=== PATIENT | male | born 1980 | race American Indian/Alaskan Native ===

== ENCOUNTER 2016-03-14 22:44 | Emergency (ER) | payer SELFPAY ==
[2016-03-15 00:19] LABS: RED CELL DISTRIBUTION WIDTH 13.3 % (11.5-14.5); WHITE BLOOD COUNT 8.7 K/mm3 (4.0-10.0)
[2016-03-15 00:34] LABS: AMPHETAMINES LEVEL URINE NEGATIVE (NEGATIVE); BENZODIAZEPINES URINE NEGATIVE (NEGATIVE); COCAINE METABOLITE URINE NEGATIVE (NEGATIVE); CONTROL LINE INT CTR LINE PRESENT; METHADONE URINE NEGATIVE (NEGATIVE); OPIATES URINE NEGATIVE (NEGATIVE); TRICYCLIC ANTIDEPRESS URINE NEGATIVE (NEGATIVE)
[2016-03-15 00:51] LABS: ALBUMIN 4.5 GM/DL (3.2-5.2); ALBUMIN/GLOBULIN RATIO 1.22 (1.00-1.93); ALKALINE PHOSPHATASE 60 U/L (45-117); ALT/SGPT 39 U/L (12-78); ANION GAP 12 MEQ/L (8-16); AST/SGOT 35 U/L (15-37); BILIRUBIN,DIRECT 0.2 MG/DL (0.0-0.2); BILIRUBIN,TOTAL 0.6 MG/DL (0.2-1.0); BLOOD UREA NITROGEN 9 MG/DL (7-18); CALCIUM LEVEL 8.7 MG/DL (8.5-10.1); CARBON DIOXIDE LEVEL 23 MEQ/L (21-32); CHLORIDE LEVEL 107 MEQ/L (98-107); CREATININE FOR GFR 1.02 MG/DL (0.70-1.30); GLOMERULAR FILTRATION RATE > 60.0 (>60); GLUCOSE, FASTING 90 MG/DL (70-105); SODIUM LEVEL 142 MEQ/L (136-145); TOTAL PROTEIN 8.2 GM/DL (6.4-8.2)
--- NOTE | 2016-03-15 01:17 | EDDOCDS ---
Physician Documentation [facility] Name: Hany Cobian Age: 35 yrs Sex: Male : 1980 Arrival Date: 03/14/2016 Time: 22:44 Bed OBSERVATION Private MD: Disposition: 03/15/16 01:10 Discharged to Home/Self Care. Impression: Cannabis abuse with intoxication, Alcohol abuse, Other disorders of adult personality and behavior. - Condition is Stable. - Medication Reconciliation, Local Pharmacy Hours form. - Follow up: Referral list, As provided by PFS; When: Call to arrange an appointment; Reason: Recheck today's complaints. - Problem is chronic. - Symptoms are unchanged. Historical: - Allergies: no known allergies; - Home Meds: 1. fluoxetine 40 mg Oral cap 1 cap once daily had not taken for a year 2. olanzapine 20 mg oral tab 1 tab once daily had not taken for a year 3. hydroxyzine HCl 25 mg Oral tab 1 tab had not taken for a year - PMHx: ADHD; - PSHx: none; - Social history: Smoking status: Patient uses tobacco products, light tobacco smoker. No barriers to communication noted, The patient speaks fluent Bhutanese. - Family history: Not pertinent. - : The pt / caregiver states he / she is not on anticoagulants. Home medication list is obtained from the patient. - Exposure Risk Screening:: None identified. Vital Signs: 03/14 22:59 BP 143 / 88; Pulse 70; Resp 20; Temp 98.4; Pulse Ox 97% on R/A; Weight 88.45 kg / 195 slm lbs; Height 6 ft. 1 in. (185.42 cm); Pain 6/10; 03/15 01:11 BP 121 / 83; Pulse 65; Resp 18; Temp 97.9; Pulse Ox 98% ; Pain 0/10; mas 03/14 22:59 Body Mass Index 25.73 (88.45 kg, 185.42 cm) slm MDM: 03/14 23:56 Consult PFS/PSA/Mailhouse Operator ordered. cs11 23:56 Consult PFS/PSA/Mailhouse Operator: Patient's case requires discussion with on-call cs11 Psychiatrist ordered. 23:56 PSA/PFS to call Nursing Card Services Specialist, to enter [place] data [place] if patient cs11 involuntarily admitted or transferred for SI or HI ordered. 23:56 Confirm accurate psychiatric medication list and times of last dosage ordered. cs11 23:56 Detain Pt Until Medically/PFS Cleared ordered. cs11 23:57 Acetaminophen Level Ordered. EDMS 23:57 Basic Metabolic Profile Ordered. EDMS 23:57 Complete Blood Count Ordered. EDMS 23:57 Drug Eval Toxicology ED Only Ordered. EDMS 23:57 Ethyl Alcohol (ethanol) Ordered. EDMS 23:57 Liver Profile Ordered. EDMS 23:57 Salicylate Level Ordered. EDMS 23:57 Thyroid Stimulating Hormone Ordered. EDMS 0115 00:39 Drug Eval Toxicology ED Only Reviewed. cs11 00:39 Complete Blood Count Reviewed. cs11 00:40 Financial registration complete. hs2 01:06 Acetaminophen Level Reviewed. cs11 01:06 Ethyl Alcohol (ethanol) Reviewed. cs11 01:06 Salicylate Level Reviewed. cs11 01:06 Basic Metabolic Profile Reviewed. cs11 01:06 Liver Profile Reviewed. cs11 01:06 Thyroid Stimulating Hormone Reviewed. cs11 01:14 Consult PFS/PSA/Mailhouse Operator complete. hm1 01:14 Consult PFS/PSA/Mailhouse Operator: Patient's case requires discussion with on-call [facility] Psychiatrist complete. 01:14 PSA/PFS to call Nursing Card Services Specialist, to enter [place] data [place] if patient 1 involuntarily admitted or transferred for SI or HI complete. 01:15 MHE Legal paperwork was scanned into [employer]. and attached to record. [facility] Signatures: Dispatcher [employer] EDMS Belinda Potter RN RN rs3 Elzbieta Avery, PSA PSA [facility] Quintin Noland, DO cs11 Joslyn Gregg LPN LPN slMaria De Jesus Yang, Reg Reg hs2 MTDD
--- NOTE | 2016-03-15 01:17 | EDDOCDS ---
Nurse's Notes [facility] Name: Hany Cobian Age: 35 yrs Sex: Male : 1980 Arrival Date: 03/14/2016 Time: 22:44 Bed OBSERVATION Private MD: Diagnosis: Cannabis abuse with intoxication;Alcohol abuse;Other disorders of adult personality and behavior Presentation: 03/14 22:49 Presenting complaint: Police states that patient called 911, was talking " I want to rs3 kill this town". Mental Health Triage Level: Level 2: The patient was brought to the ED for evaluation because of a legal pickup order. Adult Sepsis Screening: Adult Sepsis Screening: Patient's respiratory rate is less than 22. Systolic blood pressure is greater than 100. Patient has a qSOFA score of 0- Negative Sepsis Screen. Suicide/Homicide risk assessment- Patient denies SI and HI but presents with another emotional, behavioral or other mental health complaint. The patient reports that he/she has not been admitted to an inpatient mental health facility in the last 30 days. The patient reports that he/she does not have a recent or current history of substance abuse. The patient reports that he/she has no prior history of suicide attempt and/or organized plan. The patient reports that he/she has not experienced a significant life altering event in the last 30 days. The patient reports that he/she has adequate social support. Status: Patient is not a intermodal customer service or dependent. Transition of care: patient was not received from another setting of care. 22:49 Acuity: JACKELYN Level 3 rs3 22:49 Method Of Arrival: Police Car rs3 Triage Assessment: 22:54 General: Appears in no apparent distress. Pain: Denies pain. Pt Declines HIV testing. rs3 Historical: - Allergies: no known allergies; - Home Meds: 1. fluoxetine 40 mg Oral cap 1 cap once daily had not taken for a year 2. olanzapine 20 mg oral tab 1 tab once daily had not taken for a year 3. hydroxyzine HCl 25 mg Oral tab 1 tab had not taken for a year - PMHx: ADHD; - PSHx: none; - Social history: Smoking status: Patient uses tobacco products, light tobacco smoker. No barriers to communication noted, The patient speaks fluent French. - Family history: Not pertinent. - : The pt / caregiver states he / she is not on anticoagulants. Home medication list is obtained from the patient. - Exposure Risk Screening:: None identified. Screenin:54 Screening information is obtained from the patient. Fall risk: No risks identified. rs3 Assistance ADL's: requires no assistance with activities of daily living. Abuse/DV Screen: The patient / caregiver reports he/she is: not in a situation that causes fear, pain or injury. Nutritional screening: No deficits noted. Advance Directives: Currently, there is no health care proxy. home support is adequate. Assessment: 22:54 General: Appears in no apparent distress, Behavior is cooperative. Pain: Denies pain. rs3 Neurological: Level of Consciousness is awake, alert. Cardiovascular: Capillary refill < 3 seconds. Respiratory: Airway is patent Respiratory effort is even, unlabored. Derm: Skin is pink, warm & dry. 23:25 General: Appears in no apparent distress, Behavior is cooperative. General: security slm observing . Respiratory: Airway is patent Respiratory effort is even, unlabored. Derm: Skin is pink, warm & dry. 03/15 00:07 General: Appears in no apparent distress, comfortable, Behavior is appropriate for age, slm cooperative, pleasant. General: security observing . Respiratory: Airway is patent Respiratory effort is even, unlabored. Derm: Skin is pink, warm & dry. 01:15 General: Appears in no apparent distress, comfortable, Behavior is appropriate for age, slm cooperative. Respiratory: Airway is patent Respiratory effort is even, unlabored. Social Work Consult: 01:07 Social Work Note: Pt reports that he returned home from working today and his hm1 girlfriend made a statement to him that she wanted to have sex tonight, which he states was extremely rare for her lately as she hadn't been feeling well. Pt reports that he had a few drinks prior and "to be funny" he grabbed his phone and showed her that he was calling 911 to "announce how crazy it was", however he states that he truly dialed the number, he started talking and being somewhat sarcastic and difficult with the dispatcher, refusing to give information, and mocking him. He reports that his girlfriend was wearing a shirt that says "burn it down" and he made a statement out loud that he was going to burn it all down. Police arrived at his apartment and brought him in for evaluation due to that statement, Mega Driver stated that due to the odd nature of the call and the statement they opted to have him further evaluated, pt did not make any suicidal statements to police and adamantly denies SI/HI no or at any time in the past. Pt reports some legal history, however states that he is working and living independently, his girlfriend currently lives with him. Pt denies any other needs at this time, he will be given a cab voucher to return home as he does not have insurance and does not have transportation due to his arriving via police car. Vital Signs: 03/14 22:59 BP 143 / 88; Pulse 70; Resp 20; Temp 98.4; Pulse Ox 97% on R/A; Weight 88.45 kg; Height [facility] 6 ft. 1 in. (185.42 cm); Pain 6/10; 03/15 01:11 BP 121 / 83; Pulse 65; Resp 18; Temp 97.9; Pulse Ox 98% ; Pain 0/10; mas 03/14 22:59 Body Mass Index 25.73 (88.45 kg, 185.42 cm) [facility] Vitals: 03/14 22:59 Log In time N/A- police car arrival. [facility] ED Course: 22:46 Patient visited by Norma Madison. gjb 22:46 Patient moved to Waiting gjb 22:48 Patient moved to [facility] rs3 22:49 Quintin Noland DO is Attending Physician. cs11 22:49 Patient visited by Quintin Noland DO. cs11 22:52 Triage Initiated rs3 22:58 Joslyn Gregg LPN is Primary Nurse. m 23:00 Patient visited by Joslyn Gregg LPN. slm 23:10 Pt greeted and oriented to ED. Patient advised of names of staff involved in care, [facility] location of call [place], wait times and NPO status. Accompanied by Law Enforcement, [facility] on , Patient has correct armband on for positive identification. Placed in psych safe attire. Bed in low position. Call light in reach. Side rails up X 1. Security observing. Property removed, inventory done, secured in belongings bag- Placed in locker 1. Door closed. Noise minimized. Moved to private room. Verbal reassurance given. Warm blanket given. Pillow given. Psych Safety Check: Location: Psych Room. Visual Assessment: cooperative \\T\\ this time. 23:25 Patient visited by Joslyn Gregg LPN. slm 23:42 Patient visited by Jude Gentile. mas 23:45 Patient visited by Jude Gentile. [facility] 03/15 00:00 Patient moved to OBSERVATION cs11 00:06 No IV's were initiated during this patient's visit. No procedures done that require slm assistance. Labs drawn. (by ED staff). Sent per order to lab. Urine collected. Urine specimen sent to lab. 00:07 Patient visited by Joslyn Gregg LPN. slm 00:30 Patient visited by Jude Gentile. mas 00:45 Patient visited by Jude Gentile. mas 01:00 Patient visited by Jude Gentile. mas 01:09 Referral list, As provided by [facility] is Referral Physician. 11 01:15 [facility] Legal paperwork was scanned into [employer] and attached to record. [facility] 01:16 Patient visited by Joslyn Gregg LPN. [facility] 01:16 The patient / caregiver is instructed regarding the plan of care and ED course. slm Attachments: 01:15 E Legal paperwork 1 Order Results: Lab Order: Acetaminophen Level; SPEC'M 03/15/16 00:04 Test: ACETAMINOPHEN LEVEL; Value: < 2.0; Range: 10.0-30.0; Abnormal: Below low normal; Units: UG/ML; Status: F Lab Order: Basic Metabolic Profile; SPEC'M 03/15/16 00:04 Test: GLUCOSE, FASTING; Value: 90; Range: 70-105; Units: MG/DL; Status: F Test: BLOOD UREA NITROGEN; Value: 9; Range: 7-18; Units: MG/DL; Status: F Test: CREATININE FOR GFR; Value: 1.02; Range: 0.70-1.30; Units: MG/DL; Status: F Test: GLOMERULAR FILTRATION RATE; Value: > 60.0; Range: >60; Status: F Test: SODIUM LEVEL; Value: 142; Range: 136-145; Units: MEQ/L; Status: F Test: POTASSIUM SERUM; Value: 4.0; Range: 3.5-5.1; Units: MEQ/L; Status: F Test: CHLORIDE LEVEL; Value: 107; Range: 98-107; Units: MEQ/L; Status: F Test: CARBON DIOXIDE LEVEL; Value: 23; Range: 21-32; Units: MEQ/L; Status: F Test: ANION GAP; Value: 12; Range: 8-16; Units: MEQ/L; Status: F Test: CALCIUM LEVEL; Value: 8.7; Range: 8.5-10.1; Units: MG/DL; Status: F Test Note: ; Units are mL/min/1.73 m2 Chronic Kidney Disease Staging per NKF: Stage I & II GFR >=60 Normal to Mildly Decreased Stage III GFR 30-59 Moderately Decreased Stage IV GFR 15-29 Severely Decreased Stage V GFR <15 Very Little GFR Left ESRD GFR <15 on JAVA J[employer]EE ARCHITECT Lab Order: Complete Blood Count; SPEC'M 03/15/16 00:04 Test: WHITE BLOOD COUNT; Value: 8.7; Range: 4.0-10.0; Units: K/mm3; Status: F Test: RED BLOOD COUNT; Value: 5.34; Range: 4.30-6.10; Units: M/mm3; Status: F Test: HEMOGLOBIN; Value: 16.0; Range: 14.0-18.0; Units: g/dl; Status: F Test: HEMATOCRIT; Value: 48.6; Range: 42.0-52.0; Units: %; Status: F Test: MEAN CORPUSCULAR VOLUME; Value: 91.0; Range: 80.0-96.0; Units: fl; Status: F Test: MEAN CORPUSCULAR HEMOGLOBIN; Value: 30.0; Range: 27.0-33.0; Units: pg; Status: F Test: MEAN CORPUSCULAR HGB CONC; Value: 33.0; Range: 32.0-36.5; Units: g/dl; Status: F Test: RED CELL DISTRIBUTION WIDTH; Value: 13.3; Range: 11.5-14.5; Units: %; Status: F Test: PLATELET COUNT, AUTOMATED; Value: 290; Range: 150-450; Units: k/mm3; Status: F Lab Order: Drug Eval Toxicology ED Only; SPEC'M 03/15/16 00:04 Test: AMPHETAMINES LEVEL URINE; Value: NEGATIVE; Range: NEGATIVE; Status: F Test: BARBITURATES URINE; Value: NEGATIVE; Range: NEGATIVE; Status: F Test: BENZODIAZEPINES URINE; Value: NEGATIVE; Range: NEGATIVE; Status: F Test: CANNABINOIDS URINE; Value: POSITIVE; Range: NEGATIVE; Abnormal: Above high normal; Status: F Test: COCAINE METABOLITE URINE; Value: NEGATIVE; Range: NEGATIVE; Status: F Test: METHADONE URINE; Value: NEGATIVE; Range: NEGATIVE; Status: F Test: OPIATES URINE; Value: NEGATIVE; Range: NEGATIVE; Status: F Test: TRICYCLIC ANTIDEPRESS URINE; Value: NEGATIVE; Range: NEGATIVE; Status: F Test Note: ; FALSE POSITIVE RESULTS CAN BE CAUSED BY THE USE OF PANTOPRAZOLE (PROTONIX). Lab Order: Ethyl Alcohol (ethanol); SPEC'M 03/15/16 00:04 Test: ETHYL ALCOHOL (ETHANOL); Value: 0.054; Range: 0.000-0.010; Abnormal: Above high normal; Units: %; Status: F Lab Order: Liver Profile; SPEC'M 03/15/16 00:04 Test: AST/SGOT; Value: 35; Range: 15-37; Units: U/L; Status: F Test: ALT/SGPT; Value: 39; Range: 12-78; Units: U/L; Status: F Test: ALKALINE PHOSPHATASE; Value: 60; Range: 45-117; Units: U/L; Status: F Test: BILIRUBIN,TOTAL; Value: 0.6; Range: 0.2-1.0; Units: MG/DL; Status: F Test: BILIRUBIN,DIRECT; Value: 0.2; Range: 0.0-0.2; Units: MG/DL; Status: F Test: TOTAL PROTEIN; Value: 8.2; Range: 6.4-8.2; Units: GM/DL; Status: F Test: ALBUMIN; Value: 4.5; Range: 3.2-5.2; Units: GM/DL; Status: F Test: ALBUMIN/GLOBULIN RATIO; Value: 1.22; Range: 1.00-1.93; Status: F Lab Order: Salicylate Level; SPEC'M 03/15/16 00:04 Test: SALICYLATE LEVEL; Value: 2.9; Range: 5.0-30.0; Abnormal: Below low normal; Units: MG/DL; Status: F Lab Order: Thyroid Stimulating Hormone; SPEC'M 03/15/16 00:04 Test: THYROID STIMULATING HORMONE; Value: 2.280; Range: 0.358-3.740; Units: uIU/ML; Status: F Outcome: 01:10 Discharge ordered by Provider. cs11 01:15 Discharge Assessment: Patient awake, alert and oriented x 3. No cognitive and/or slm functional deficits noted. Patient verbalized understanding of disposition instructions. patient administered narcotics - no. The following High Risk Discharge criteria are identified: Yes, pt seen by and GAB no concerns d/c home via cab . Discharged to home ambulatory. Condition: good. Discharge instructions given to patient, Instructed on discharge instructions, follow up and referral plans. Demonstrated understanding of instructions, Pt was receptive of discharge instructions/ teaching. No special radiology studies were completed. 01:16 Patient left the ED. slm Signatures: Belinda Potter RN RN rs3 Elzbieta Avery, GAB PSA hm1 Jude Gentile Craig, DO DO cs11 Joslyn Gregg LPN LPN Norma Arevalo DELANEY
--- NOTE | 2016-03-17 02:17 | EDDOCDS ---
Physician Documentation [facility] Name: Hany Ferrari Age: 35 yrs Sex: Male : 1980 Arrival Date: 03/14/2016 Time: 22:44 Bed OBSERVATION Private MD: Disposition: 03/15/16 01:10 Discharged to Home/Self Care. Impression: Cannabis abuse with intoxication, Alcohol abuse, Other disorders of adult personality and behavior. - Condition is Stable. - Medication Reconciliation, Local Pharmacy Hours form. - Follow up: Referral list, As provided by PFS; When: Call to arrange an appointment; Reason: Recheck today's complaints. - Problem is chronic. - Symptoms are unchanged. Historical: - Allergies: no known allergies; - Home Meds: 1. fluoxetine 40 mg Oral cap 1 cap once daily had not taken for a year 2. olanzapine 20 mg oral tab 1 tab once daily had not taken for a year 3. hydroxyzine HCl 25 mg Oral tab 1 tab had not taken for a year - PMHx: ADHD; - PSHx: none; - Social history: Smoking status: Patient uses tobacco products, light tobacco smoker. No barriers to communication noted, The patient speaks fluent [place]. - Family history: Not pertinent. - : The pt / caregiver states he / she is not on anticoagulants. Home medication list is obtained from the patient. - Exposure Risk Screening:: None identified. Vital Signs: 03/14 22:59 BP 143 / 88; Pulse 70; Resp 20; Temp 98.4; Pulse Ox 97% on R/A; Weight 88.45 kg / 195 slm lbs; Height 6 ft. 1 in. (185.42 cm); Pain 6/10; 03/15 01:11 BP 121 / 83; Pulse 65; Resp 18; Temp 97.9; Pulse Ox 98% ; Pain 0/10; mas 03/14 22:59 Body Mass Index 25.73 (88.45 kg, 185.42 cm) slm MDM: 03/14 23:56 Consult PFS/PSA/Processor Inspector ordered. cs11 23:56 Consult PFS/PSA/Processor Inspector: Patient's case requires discussion with on-call cs11 Psychiatrist ordered. 23:56 PSA/PFS to call Nursing Boiler Testing Technician, to enter [place] data [place] if patient cs11 involuntarily admitted or transferred for SI or HI ordered. 23:56 Confirm accurate psychiatric medication list and times of last dosage ordered. cs11 23:56 Detain Pt Until Medically/PFS Cleared ordered. cs11 23:57 Acetaminophen Level Ordered. EDMS 23:57 Basic Metabolic Profile Ordered. EDMS 23:57 Complete Blood Count Ordered. EDMS 23:57 Drug Eval Toxicology ED Only Ordered. EDMS 23:57 Ethyl Alcohol (ethanol) Ordered. EDMS 23:57 Liver Profile Ordered. EDMS 23:57 Salicylate Level Ordered. EDMS 23:57 Thyroid Stimulating Hormone Ordered. EDMS 0115 00:39 Drug Eval Toxicology ED Only Reviewed. cs11 00:39 Complete Blood Count Reviewed. cs11 00:40 Financial registration complete. hs2 01:06 Acetaminophen Level Reviewed. cs11 01:06 Ethyl Alcohol (ethanol) Reviewed. cs11 01:06 Salicylate Level Reviewed. cs11 01:06 Basic Metabolic Profile Reviewed. cs11 01:06 Liver Profile Reviewed. cs11 01:06 Thyroid Stimulating Hormone Reviewed. 11 01:14 Consult PFS/PSA/Processor Inspector complete. hm1 01:14 Consult PFS/PSA/Processor Inspector: Patient's case requires discussion with on-call [facility] Psychiatrist complete. 01:14 PSA/PFS to call Nursing Boiler Testing Technician, to enter [place] data [place] if patient 1 involuntarily admitted or transferred for SI or HI complete. 01:15 MHE Legal paperwork was scanned into [employer] and attached to record. [facility] 03:20 [facility] Payment Agreement was scanned into [employer] and attached to record. hs2 09:26 T-Sheet-- Draft Copy was scanned into [employer] and attached to record. [facility] Signatures: Dispatcher [employer] Belinda CandelarioRN RN rs3 Elzbieta Avery, PSA PSA 1 Quintin Noland, DO cs11 Joslyn Gregg LPN CLAIM TRAINEE slm Maria De Jesus Soriano, Reg Reg hs2 Patrizia Phillips The chart was reviewed and I authenticate all verbal orders and agree with the evaluation and treatment provided.Attachments: 03:20 [facility] Payment Agreement hs2 09:26 T-Sheet-- Draft Copy [facility] Chart Complete MTDD
--- NOTE | 2016-03-17 02:17 | EDDOCDS ---
Physician Documentation [facility] Name: Hany Ferrari Age: 35 yrs Sex: Male : 1980 Arrival Date: 03/14/2016 Time: 22:44 Bed OBSERVATION Private MD: Disposition: 03/15/16 01:10 Discharged to Home/Self Care. Impression: Cannabis abuse with intoxication, Alcohol abuse, Other disorders of adult personality and behavior. - Condition is Stable. - Medication Reconciliation, Local Pharmacy Hours form. - Follow up: Referral list, As provided by PFS; When: Call to arrange an appointment; Reason: Recheck today's complaints. - Problem is chronic. - Symptoms are unchanged. Historical: - Allergies: no known allergies; - Home Meds: 1. fluoxetine 40 mg Oral cap 1 cap once daily had not taken for a year 2. olanzapine 20 mg oral tab 1 tab once daily had not taken for a year 3. hydroxyzine HCl 25 mg Oral tab 1 tab had not taken for a year - PMHx: ADHD; - PSHx: none; - Social history: Smoking status: Patient uses tobacco products, light tobacco smoker. No barriers to communication noted, The patient speaks fluent [place]. - Family history: Not pertinent. - : The pt / caregiver states he / she is not on anticoagulants. Home medication list is obtained from the patient. - Exposure Risk Screening:: None identified. Vital Signs: 03/14 22:59 BP 143 / 88; Pulse 70; Resp 20; Temp 98.4; Pulse Ox 97% on R/A; Weight 88.45 kg / 195 slm lbs; Height 6 ft. 1 in. (185.42 cm); Pain 6/10; 03/15 01:11 BP 121 / 83; Pulse 65; Resp 18; Temp 97.9; Pulse Ox 98% ; Pain 0/10; mas 03/14 22:59 Body Mass Index 25.73 (88.45 kg, 185.42 cm) slm MDM: 03/14 23:56 Consult PFS/PSA/Demo Coordinator ordered. cs11 23:56 Consult PFS/PSA/Demo Coordinator: Patient's case requires discussion with on-call cs11 Psychiatrist ordered. 23:56 PSA/PFS to call Nursing Software Applications Architect, to enter [place] data [place] if patient cs11 involuntarily admitted or transferred for SI or HI ordered. 23:56 Confirm accurate psychiatric medication list and times of last dosage ordered. cs11 23:56 Detain Pt Until Medically/PFS Cleared ordered. cs11 23:57 Acetaminophen Level Ordered. EDMS 23:57 Basic Metabolic Profile Ordered. EDMS 23:57 Complete Blood Count Ordered. EDMS 23:57 Drug Eval Toxicology ED Only Ordered. EDMS 23:57 Ethyl Alcohol (ethanol) Ordered. EDMS 23:57 Liver Profile Ordered. EDMS 23:57 Salicylate Level Ordered. EDMS 23:57 Thyroid Stimulating Hormone Ordered. EDMS 0115 00:39 Drug Eval Toxicology ED Only Reviewed. cs11 00:39 Complete Blood Count Reviewed. cs11 00:40 Financial registration complete. hs2 01:06 Acetaminophen Level Reviewed. cs11 01:06 Ethyl Alcohol (ethanol) Reviewed. cs11 01:06 Salicylate Level Reviewed. cs11 01:06 Basic Metabolic Profile Reviewed. cs11 01:06 Liver Profile Reviewed. cs11 01:06 Thyroid Stimulating Hormone Reviewed. 11 01:14 Consult PFS/PSA/Demo Coordinator complete. hm1 01:14 Consult PFS/PSA/Demo Coordinator: Patient's case requires discussion with on-call [facility] Psychiatrist complete. 01:14 PSA/PFS to call Nursing Software Applications Architect, to enter [place] data [place] if patient 1 involuntarily admitted or transferred for SI or HI complete. 01:15 MHE Legal paperwork was scanned into [employer] and attached to record. [facility] 03:20 [facility] Payment Agreement was scanned into [employer] and attached to record. hs2 09:26 T-Sheet-- Draft Copy was scanned into [employer] and attached to record. [facility] Signatures: Dispatcher [employer] Belinda CandelarioRN RN rs3 Elzbieta Avery, PSA PSA 1 Quintin Noland, DO cs11 Joslyn Gregg LPN BITUMEN PLANT OPERATOR slm Maria De Jesus Soriano, Reg Reg hs2 Patrizia Phillips The chart was reviewed and I authenticate all verbal orders and agree with the evaluation and treatment provided.Attachments: 03:20 [facility] Payment Agreement hs2 09:26 T-Sheet-- Draft Copy [facility] Chart Complete MTDD
--- NOTE | 2016-03-17 02:17 | EDDOCDS ---
Nurse's Notes [facility] Name: Hany Ferrari Age: 35 yrs Sex: Male : 1980 Arrival Date: 03/14/2016 Time: 22:44 Bed OBSERVATION Private MD: Diagnosis: Cannabis abuse with intoxication;Alcohol abuse;Other disorders of adult personality and behavior Presentation: 03/14 22:49 Presenting complaint: Police states that patient called 911, was talking " I want to rs3 kill this town". Mental Health Triage Level: Level 2: The patient was brought to the ED for evaluation because of a legal pickup order. Adult Sepsis Screening: Adult Sepsis Screening: Patient's respiratory rate is less than 22. Systolic blood pressure is greater than 100. Patient has a qSOFA score of 0- Negative Sepsis Screen. Suicide/Homicide risk assessment- Patient denies SI and HI but presents with another emotional, behavioral or other mental health complaint. The patient reports that he/she has not been admitted to an inpatient mental health facility in the last 30 days. The patient reports that he/she does not have a recent or current history of substance abuse. The patient reports that he/she has no prior history of suicide attempt and/or organized plan. The patient reports that he/she has not experienced a significant life altering event in the last 30 days. The patient reports that he/she has adequate social support. Status: Patient is not a service consultant or dependent. Transition of care: patient was not received from another setting of care. 22:49 Acuity: JACKELYN Level 3 rs3 22:49 Method Of Arrival: Police Car rs3 Triage Assessment: 22:54 General: Appears in no apparent distress. Pain: Denies pain. Pt Declines HIV testing. rs3 Historical: - Allergies: no known allergies; - Home Meds: 1. fluoxetine 40 mg Oral cap 1 cap once daily had not taken for a year 2. olanzapine 20 mg oral tab 1 tab once daily had not taken for a year 3. hydroxyzine HCl 25 mg Oral tab 1 tab had not taken for a year - PMHx: ADHD; - PSHx: none; - Social history: Smoking status: Patient uses tobacco products, light tobacco smoker. No barriers to communication noted, The patient speaks fluent Amharic. - Family history: Not pertinent. - : The pt / caregiver states he / she is not on anticoagulants. Home medication list is obtained from the patient. - Exposure Risk Screening:: None identified. Screenin:54 Screening information is obtained from the patient. Fall risk: No risks identified. rs3 Assistance ADL's: requires no assistance with activities of daily living. Abuse/DV Screen: The patient / caregiver reports he/she is: not in a situation that causes fear, pain or injury. Nutritional screening: No deficits noted. Advance Directives: Currently, there is no health care proxy. home support is adequate. Assessment: 22:54 General: Appears in no apparent distress, Behavior is cooperative. Pain: Denies pain. rs3 Neurological: Level of Consciousness is awake, alert. Cardiovascular: Capillary refill < 3 seconds. Respiratory: Airway is patent Respiratory effort is even, unlabored. Derm: Skin is pink, warm & dry. 23:25 General: Appears in no apparent distress, Behavior is cooperative. General: security slm observing . Respiratory: Airway is patent Respiratory effort is even, unlabored. Derm: Skin is pink, warm & dry. 03/15 00:07 General: Appears in no apparent distress, comfortable, Behavior is appropriate for age, slm cooperative, pleasant. General: security observing . Respiratory: Airway is patent Respiratory effort is even, unlabored. Derm: Skin is pink, warm & dry. 01:15 General: Appears in no apparent distress, comfortable, Behavior is appropriate for age, slm cooperative. Respiratory: Airway is patent Respiratory effort is even, unlabored. Social Work Consult: 01:07 Social Work Note: Pt reports that he returned home from working today and his hm1 girlfriend made a statement to him that she wanted to have sex tonight, which he states was extremely rare for her lately as she hadn't been feeling well. Pt reports that he had a few drinks prior and "to be funny" he grabbed his phone and showed her that he was calling 911 to "announce how crazy it was", however he states that he truly dialed the number, he started talking and being somewhat sarcastic and difficult with the dispatcher, refusing to give information, and mocking him. He reports that his girlfriend was wearing a shirt that says "burn it down" and he made a statement out loud that he was going to burn it all down. Police arrived at his apartment and brought him in for evaluation due to that statement, [employer] stated that due to the odd nature of the call and the statement they opted to have him further evaluated, pt did not make any suicidal statements to police and adamantly denies SI/HI no or at any time in the past. Pt reports some legal history, however states that he is working and living independently, his girlfriend currently lives with him. Pt denies any other needs at this time, he will be given a cab voucher to return home as he does not have insurance and does not have transportation due to his arriving via police car. Vital Signs: 03/14 22:59 BP 143 / 88; Pulse 70; Resp 20; Temp 98.4; Pulse Ox 97% on R/A; Weight 88.45 kg; Height [facility] 6 ft. 1 in. (185.42 cm); Pain 6/10; 03/15 01:11 BP 121 / 83; Pulse 65; Resp 18; Temp 97.9; Pulse Ox 98% ; Pain 0/10; mas 03/14 22:59 Body Mass Index 25.73 (88.45 kg, 185.42 cm) [facility] Vitals: 03/14 22:59 Log In time N/A- police car arrival. [facility] ED Course: 22:46 Patient visited by Norma Madison. gjb 22:46 Patient moved to Waiting gjb 22:48 Patient moved to [facility] rs3 22:49 Quintin Noland DO is Attending Physician. cs11 22:49 Patient visited by Quintin Noland DO. cs11 22:52 Triage Initiated rs3 22:58 Joslyn Gregg LPN is Primary Nurse. m 23:00 Patient visited by Joslyn Gregg LPN. slm 23:10 Pt greeted and oriented to ED. Patient advised of names of staff involved in care, [facility] location of call [place], wait times and NPO status. Accompanied by Law Enforcement, [facility] on , Patient has correct armband on for positive identification. Placed in psych safe attire. Bed in low position. Call light in reach. Side rails up X 1. Security observing. Property removed, inventory done, secured in belongings bag- Placed in locker 1. Door closed. Noise minimized. Moved to private room. Verbal reassurance given. Warm blanket given. Pillow given. Psych Safety Check: Location: Psych Room. Visual Assessment: cooperative \\T\\ this time. 23:25 Patient visited by Joslyn Gregg LPN. slm 23:42 Patient visited by Jude Gentile. mas 23:45 Patient visited by Jude Gentile. [facility] 03/15 00:00 Patient moved to OBSERVATION cs11 00:06 No IV's were initiated during this patient's visit. No procedures done that require slm assistance. Labs drawn. (by ED staff). Sent per order to lab. Urine collected. Urine specimen sent to lab. 00:07 Patient visited by Joslyn Gregg LPN. slm 00:30 Patient visited by Jude Gentile. mas 00:45 Patient visited by Jude Gentile. mas 01:00 Patient visited by Jude Gentile. mas 01:09 Referral list, As provided by [facility] is Referral Physician. cs11 01:15 E Legal paperwork was scanned into [employer] and attached to record. 1 01:16 Patient visited by Joslyn Gregg LPN. slm 01:16 The patient / caregiver is instructed regarding the plan of care and ED course. slm 03:20 [facility] [place] Agreement was scanned into [employer] and attached to record. hs2 03:24 Patient name changed from Hany\\S\\\\S\\[place]\\S\\ to Hany\\S\\ \\S\\[place]. EDMS 09:26 T-Sheet-- Draft Copy was scanned into [employer] and attached to record. [facility] Attachments: 01:15 [facility] Legal paperwork hm1 Order Results: Lab Order: Acetaminophen Level; SPEC'M 03/15/16 00:04 Test: ACETAMINOPHEN LEVEL; Value: < 2.0; Range: 10.0-30.0; Abnormal: Below low normal; Units: UG/ML; Status: F Lab Order: Basic Metabolic Profile; SPEC'M 03/15/16 00:04 Test: GLUCOSE, FASTING; Value: 90; Range: 70-105; Units: MG/DL; Status: F Test: BLOOD UREA NITROGEN; Value: 9; Range: 7-18; Units: MG/DL; Status: F Test: CREATININE FOR GFR; Value: 1.02; Range: 0.70-1.30; Units: MG/DL; Status: F Test: GLOMERULAR FILTRATION RATE; Value: > 60.0; Range: >60; Status: F Test: SODIUM LEVEL; Value: 142; Range: 136-145; Units: MEQ/L; Status: F Test: POTASSIUM SERUM; Value: 4.0; Range: 3.5-5.1; Units: MEQ/L; Status: F Test: CHLORIDE LEVEL; Value: 107; Range: 98-107; Units: MEQ/L; Status: F Test: CARBON DIOXIDE LEVEL; Value: 23; Range: 21-32; Units: MEQ/L; Status: F Test: ANION GAP; Value: 12; Range: 8-16; Units: MEQ/L; Status: F Test: CALCIUM LEVEL; Value: 8.7; Range: 8.5-10.1; Units: MG/DL; Status: F Test Note: ; Units are mL/min/1.73 m2 Chronic Kidney Disease Staging per NKF: Stage I & II GFR >=60 Normal to Mildly Decreased Stage III GFR 30-59 Moderately Decreased Stage IV GFR 15-29 Severely Decreased Stage V GFR <15 Very Little GFR Left ESRD GFR <15 on COMPUTER EQUIPMENT INSTALLER Lab Order: Complete Blood Count; SPEC'03/15/16 00:04 Test: WHITE BLOOD COUNT; Value: 8.7; Range: 4.0-10.0; Units: K/mm3; Status: F Test: RED BLOOD COUNT; Value: 5.34; Range: 4.30-6.10; Units: M/mm3; Status: F Test: HEMOGLOBIN; Value: 16.0; Range: 14.0-18.0; Units: g/dl; Status: F Test: HEMATOCRIT; Value: 48.6; Range: 42.0-52.0; Units: %; Status: F Test: MEAN CORPUSCULAR VOLUME; Value: 91.0; Range: 80.0-96.0; Units: fl; Status: F Test: MEAN CORPUSCULAR HEMOGLOBIN; Value: 30.0; Range: 27.0-33.0; Units: pg; Status: F Test: MEAN CORPUSCULAR HGB CONC; Value: 33.0; Range: 32.0-36.5; Units: g/dl; Status: F Test: RED CELL DISTRIBUTION WIDTH; Value: 13.3; Range: 11.5-14.5; Units: %; Status: F Test: PLATELET COUNT, AUTOMATED; Value: 290; Range: 150-450; Units: k/mm3; Status: F Lab Order: Drug Eval Toxicology ED Only; SPEC'M 03/15/16 00:04 Test: AMPHETAMINES LEVEL URINE; Value: NEGATIVE; Range: NEGATIVE; Status: F Test: BARBITURATES URINE; Value: NEGATIVE; Range: NEGATIVE; Status: F Test: BENZODIAZEPINES URINE; Value: NEGATIVE; Range: NEGATIVE; Status: F Test: CANNABINOIDS URINE; Value: POSITIVE; Range: NEGATIVE; Abnormal: Above high normal; Status: F Test: COCAINE METABOLITE URINE; Value: NEGATIVE; Range: NEGATIVE; Status: F Test: METHADONE URINE; Value: NEGATIVE; Range: NEGATIVE; Status: F Test: OPIATES URINE; Value: NEGATIVE; Range: NEGATIVE; Status: F Test: TRICYCLIC ANTIDEPRESS URINE; Value: NEGATIVE; Range: NEGATIVE; Status: F Test Note: ; FALSE POSITIVE RESULTS CAN BE CAUSED BY THE USE OF PANTOPRAZOLE (PROTONIX). Lab Order: Ethyl Alcohol (ethanol); SPEC'M 03/15/16 00:04 Test: ETHYL ALCOHOL (ETHANOL); Value: 0.054; Range: 0.000-0.010; Abnormal: Above high normal; Units: %; Status: F Lab Order: Liver Profile; SPEC'M 03/15/16 00:04 Test: AST/SGOT; Value: 35; Range: 15-37; Units: U/L; Status: F Test: ALT/SGPT; Value: 39; Range: 12-78; Units: U/L; Status: F Test: ALKALINE PHOSPHATASE; Value: 60; Range: 45-117; Units: U/L; Status: F Test: BILIRUBIN,TOTAL; Value: 0.6; Range: 0.2-1.0; Units: MG/DL; Status: F Test: BILIRUBIN,DIRECT; Value: 0.2; Range: 0.0-0.2; Units: MG/DL; Status: F Test: TOTAL PROTEIN; Value: 8.2; Range: 6.4-8.2; Units: GM/DL; Status: F Test: ALBUMIN; Value: 4.5; Range: 3.2-5.2; Units: GM/DL; Status: F Test: ALBUMIN/GLOBULIN RATIO; Value: 1.22; Range: 1.00-1.93; Status: F Lab Order: Salicylate Level; SPEC'M 03/15/16 00:04 Test: SALICYLATE LEVEL; Value: 2.9; Range: 5.0-30.0; Abnormal: Below low normal; Units: MG/DL; Status: F Lab Order: Thyroid Stimulating Hormone; SPEC'M 03/15/16 00:04 Test: THYROID STIMULATING HORMONE; Value: 2.280; Range: 0.358-3.740; Units: uIU/ML; Status: F Outcome: 01:10 Discharge ordered by Provider. cs11 01:15 Discharge Assessment: Patient awake, alert and oriented x 3. No cognitive and/or slm functional deficits noted. Patient verbalized understanding of disposition instructions. patient administered narcotics - no. The following High Risk Discharge criteria are identified: Yes, pt seen by md and PSA no concerns d/c home via cab . Discharged to home ambulatory. Condition: good. Discharge instructions given to patient, Instructed on discharge instructions, follow up and referral plans. Demonstrated understanding of instructions, Pt was receptive of discharge instructions/ teaching. No special radiology studies were completed. 01:16 Patient left the ED. slm Signatures: Dispatcher [employer] EDMS Belinda Potter,MERRILL RN rs3 Elzbieta Avery, PSA PSA 1 Jude Gentile Craig, DO cs11 Joslyn Gregg LPN LPN slm Beck, Gabriela gjb Stanton, Hillary, Reg Reg hs2 Patrizia Phillips Chart Complete MTDD
== END 2016-03-15 01:16 | disposition home or self-care (01) ==
LOC: M ED 22:44
DX: F12.10 Cannabis abuse, uncomplicated (principal); F10.10 Alcohol abuse, uncomplicated; F91.9 Conduct disorder, unspecified; F90.9 Attention-deficit hyperactivity disorder, unspecified type; F17.200 Nicotine dependence, unspecified, uncomplicated; Z79.899 Other long term (current) drug therapy
CPT/HCPCS: 36415; 80048; 80076; 80306; 84443; 85027; 99284; G0480